=== PATIENT | female | born 1930 | race Caucasian/White ===

== ENCOUNTER → 2016-10-16 | Outpatient (CLI) | payer OTHER, BC ==
[~2016-10-16] MED LIST: ALEVE220 MG PO; ASPIRIN325 PO; ASPIRIN81 M2 PO; CLOPIDOGREL75 MG PO; FOSAMAX 70 MG T70 MG PO; HYDROCHLOROTHIA25 M2 PO; K-DUR10 MEQ PO; LIPITOR 10 MG10 M1 PO; LISINOPRIL10 MG PO; MULTI VITAMIN1 EACH PO; SYNTHROID50 MCG PO; TRAMADOL 50 MG50 MG PO
== END ==
LOC: RAD 01:27
DX: Z12.31 Encounter for screening mammogram for malignant neoplasm of breast (principal)

== ENCOUNTER 2017-05-21 13:10 | Inpatient (IN) | payer OTHER ==
[~2017-05-21] VITALS: Ht 157.5 cm; Wt 48.1 kg
--- NOTE | ~2017-05-21 | EKG ---
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
--- NOTE | ~2017-05-21 | O ---
[facility] [place] [place] [address] OPERATIVE REPORT Name: CANDE FERNÁNDEZ Room #: 457-P ADM IN M.R.#: [id number] Admission: 05/21/17 Attend Phys: Mason Virk DO Discharge: Date of : [birth year] Report #: [id number] THIS REPORT FOR: //name// CC: Bro Virk DATE OF SERVICE: 05/21/2017 PREOPERATIVE DIAGNOSIS: Right wrist comminuted distal radius and ulna fracture. POSTOPERATIVE DIAGNOSIS: Right wrist comminuted distal radius and ulna fracture. OPERATIVE PROCEDURE: Right wrist reduction and application of external fixator. SURGEON: Jordan Seaman MD COLLEGE PRESIDENT: SHANITA Gardner ANESTHESIA: General. INDICATIONS: See hospital H and P. DESCRIPTION OF PROCEDURE: After adequate general anesthesia had been obtained, the patient's right lower extremity was prepped and draped in the usual meticulous sterile fashion. I first did a closed reduction to ensure we could get over to closed reduction and indeed her fracture reduced near anatomically with distally based traction and ulnar deviation. We then prepped and draped the right upper extremity in the usual sterile fashion. The limb was exsanguinated with gravity and tourniquet inflated to 250 torr. We made a medial linear incision along the radial aspect of the radius and 2 small stab incisions along the radial aspect of the index metacarpal. Pins from the [employer] fixator device were then placed through the drill guide. The depth was checked on the C-arm and found to be in good position. We then applied the Monotube into position, tightened the proximal portion. We then reduced the fracture and tightened the distal portion. We checked the fracture in 2 planes on the C-arm, noted the tibia in good position. We then torqued the screws to ensure that they were completely tightened. We then irrigated the wounds copiously. 4-0 nylon was used to close the skin. Sterile compressive dressing applied. Tourniquet deflated. By: 1154 1215 Jordan Seaman MD /nt
--- NOTE | ~2017-05-21 | HC ---
[facility] [place] [address] CONSULTATION Name: CANDE FERNÁNDEZ Room #: 457-P ADM IN M.R.#: [id number] Admission: 05/21/17 Attend Phys: Mason Virk DO Discharge: Date of : [birth year] Report #: [id number] THIS REPORT FOR: //name// CC: Bro Virk CHIEF COMPLAINT: Right wrist pain. BRIEF HISTORY: The patient is an 86-year-old lady who was looking up ____ and lost her balance and fell. She apparently had a syncopal episode associated with this fall as well. EMS relates that when they went to the scene, she attempted to stand up and then had the syncopal episode, which lasted about 30 seconds. She had an x-ray done of her right wrist, which demonstrated a displaced wrist fracture. This was provisionally reduced and splinted, and she was admitted for definitive treatment. By history, she did have a small abrasion over the ulnar aspect of her wrist, but it was superficial. She denies numbness or tingling. PAST MEDICAL HISTORY: Significant for coronary artery disease, history of stent placement and hypertension. MEDICATIONS: Include Zestril, vitamin D, Ultram, Lipitor, Synthroid and vitamin B12. ALLERGIES: None known other than SHELLFISH. PHYSICAL EXAMINATION: MUSCULOSKELETAL: Examination of her right wrist demonstrates she does have a splint in place. It was a closed injury as mentioned. Sensation is intact in her fingers. She has brisk capillary refill but does have moderate swelling in her fingers. During the course of her examination, she did relate that she is complaining of some right-sided hip pain as well. We did a stat portable x-ray of her right hip, which demonstrates new irregularity of her inferior pubic ramus on the right, difficult to ascertain whether this is acute or chronic. IMPRESSION: Right wrist distal radius and ulnar fracture with displacement and right-sided hip pain with possible pubic ramus fracture. PLAN: Due to the fact that this fracture is comminuted and with her bone quality and the fact that it is so distal, I am leaning towards doing an external fixator to fixate this fracture. I did counselor supervisor her on the surgery as well as the benefits, risks and outcomes. We will be prepared to do a percutaneous pinning and/or plating if necessary. [address] [address] CONSULTATION Name: CANDE FERNÁNDEZ Room #: 457-P [facility] IN M.R.#: [id number] Admission: 05/21/17 Attend Phys: Mason Virk DO Discharge: Date of : [birth year] Report #: [id number] For her hip, we will treat this symptomatically even if there is an acute fracture of the pubic ramus, so she can be weightbearing as tolerated. By: 1151 1712 Jordan Seaman MD /kelly
--- NOTE | ~2017-05-21 | 2DMMODE ---
[facility] [address] [place] [address] 2 D/M-MODE ECHOCARDIOGRAM Name: JOLENECANDE NAGA Room #: 457-P ADM IN M.R.#: [id number] Admission: 05/21/17 Attend Phys: Mason Virk, Discharge: Date of : [birth year] Date of Service: 05/22/17 1454 Report #: [id number] THIS REPORT FOR: //name// APPROVED REPORT Study performed: 05/22/2017 13:34:43 EXAM: Comprehensive 2D, Doppler, and color-flow Echocardiogram Patient Location: Bedside Room #: [facility] Status: routine BSA: 1.46 HR: 68 bpm BP: 154/92 mmHg Rhythm: Sinus/Irregular Other Information Study Quality: Adequate Indications Syncope 2D Dimensions RVDd: 30.86 mm LVEF(%): 71.40 (>50%) IVSd: 10.00 (7-11mm) LVOT Diam: 20.45 (18-24mm) LVDd: 41.43 mm PWd: 8.25 (7-11mm) Ascending Ao: 32.73 (22-36mm) LVDs: 24.74 (25-40mm) Aortic Root: 35.12 mm Waddell's LVEF: 71.40 % Volumes Left Atrial Volume (Systole) Single Plane 4CH: 42.26 mL Single Plane 2CH: 31.75 mL LA ESV Index: 29.00 mL/m2 Aortic Valve AoV Peak Adria.: 1.14 m/s AO Peak Gr.: 5.24 mmHg LVOT Max P.02 mmHg LVOT Max V: 0.71 m/s PETRONA Vmax: 2.04 cm2 Mitral Valve E/A Ratio: 0.8 MV Decel. Time: 261.07 ms [facility] [place] [address] 2 D/M-MODE ECHOCARDIOGRAM Name: CANDE FERNÁNDEZ Room #: 457-P [facility] IN M.R.#: [id number] Admission: 05/21/17 Attend Phys: Mason Virk, Discharge: Date of : [birth year] Date of Service: 05/22/17 1454 Report #: [id number] MV E Max Adria.: 0.60 m/s MV A Adria.: 0.72 m/s MV PHT: 75.71 ms IVRT: 92.27 ms Pulmonary Valve PV Peak Adria.: 1.02 m/s PV Peak Gr.: 4.15 mmHg Pulmonary Vein P Vein S: 0.55 m/s P Vein A: 0.33 m/s P Vein D: 0.32 m/s P Vein A Dur.: 92.3 msec P Vein S/D Ratio: 1.72 Tricuspid Valve TR Peak Adria.: 2.55 m/s RAP Estimate: 5.00 mmHg TR Peak Gr.: 26.01 mmHg PA Pressure: 31.00 mmHg Left Ventricle The left ventricle is normal size. There is normal LV segmental wall motion. There is normal left ventricular wall thickness. Left ventricular systolic function is normal. LVEF is 55%. Mild diastolic dysfunction is present (impaired relaxation pattern). Right Ventricle The right ventricle is normal size. The right ventricular systolic function is normal. Atria The left atrium size is normal. The right atrium size is normal. Aortic Valve Aortic valve is mildly calcified. No aortic regurgitation is present. There is no aortic valvular stenosis. Mitral Valve Mitral valve leaflets are mildly thickened. Trace mitral regurgitation. Tricuspid Valve The tricuspid valve is normal in structure. There is mild tricuspid regurgitation. The right atrial pressure is estimated at 5 mmHg. There is borderline mild pulmonary hypertension with an estimated PAP of 30mmHg. [address] [address] 2 D/M-MODE ECHOCARDIOGRAM Name: CANDE FERNÁNDEZ Room #: 457-P [facility] IN ..#: [id number] Admission: 05/21/17 Attend Phys: Mason Virk, Discharge: Date of : [birth year] Date of Service: 05/22/17 1454 Report #: [id number] Pulmonic Valve The pulmonary valve is normal in structure. Trace pulmonic regurgitation. Great Vessels The aortic root is normal in size. The ascending aorta is normal in size. IVC is normal in size and collapses >50% with inspiration. Pericardium There is no pericardial effusion. <Conclusion> Normal global systolic function LVEF is 55%. Normal LV segmental wall motion. Mild diastolic dysfunction is present (impaired relaxation pattern). Aortic valve is mildly calcified. No stenosis or insufficiency Mitral valve leaflets are mildly thickened. Trace mitral regurgitation. Pulmonary artery pressure of 30mmHg. There is no pericardial effusion. <ELECTRONICALLY SIGNED> By: Scott Zaragoza MD, FACC 05/22/17 1454 1454 1454 Scott Zaragoza MD, FACC /INF
--- NOTE | ~2017-05-21 | HC ---
[facility] [place] [address] CONSULTATION Name: CANDE FERNÁNDEZ Room #: 457-P ADM IN M.R.#: [id number] Admission: 05/21/17 Attend Phys: Mason Virk DO Discharge: Date of : [birth year] Report #: [id number] THIS REPORT FOR: //name// CC: Bro Virk DATE OF SERVICE: 05/23/2017 HISTORY OF PRESENT ILLNESS: This is an 86-year-old white female who was looking at the eclipse, lost her balance and fell backwards. EMS came on to see her. She had hurt her right wrist. They attempt to stand her and she had a syncopal episode. She has been admitted for further evaluation. CT of the head was negative. Right wrist showed displaced fracture of radius and ulna and she underwent reduction with external fixator placement. She also has complaints of her right hip and pelvic pain. She is undergoing a CT of the pelvis with results pending. We are seeing her in rehabilitation medicine consultation. PAST MEDICAL HISTORY: Includes coronary artery disease with cardiac stent placement. MEDICATIONS: Please see the full medication listing. HABITS: No history of tobacco or alcohol abuse. SOCIAL HISTORY: House with spouse, ramp in, premorbid cane ambulator on occasion. They do have a stair glide to the basement. Involved family members. REVIEW OF SYSTEMS: Did not offer any current complaints of chest pain, shortness of breath or abdominal discomfort. She has the right-sided pelvic pain as noted above. Some right discomfort of the wrist as expected. PHYSICAL EXAMINATION: GENERAL: An 86-year-old small slender white female in no obvious distress. She is alert and appears quite sharp. HEENT: Facies are symmetric. EXTREMITIES: She has functional range of motion of the left upper extremity with some chronic degenerative arthritic changes. Right upper extremity reveals the right external fixator in place over the wrist. She can move the proximal arm with strength grade 4 to 4+/5. She is able to move her thumb and wiggle her fingers slightly. There is no distal edema noted. Lower extremities: She has some discomfort with moving that right lower extremity at the hip and pelvis. She can dorsiflex both ankles. No focal calf swelling. No obvious focal weakness of the left lower extremity. It was more difficult to test the right lower extremity because of some of the discomfort as noted above. ASSESSMENT: An 86-year-old white female with the following problem list: [address] [address] CONSULTATION Name: CANDE FERNÁNDEZ Room #: 457-P [facility] IN .R.#: [id number] Admission: 05/21/17 Attend Phys: Mason Virk DO Discharge: Date of : [birth year] Report #: [id number] 1. Right radial and ulnar fracture status post reduction with external fixator, nonweightbearing. She is to be up with a platform walker. 2. 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 3. Hip pain with x-ray unequivocal. CT scan pending. PLAN: The patient has been up mod assist sit to stand, took 4 steps mod assist, handheld assistance. Platform walker to be obtained. She is nonweightbearing, right upper extremity. I do not see that she would meet criteria for an acute 5-North inpatient rehabilitation stay at this time. She is hoping to return directly home, but may more practically warrant skilled facility stay unless family can further support during the home setting. We will need to see in par what her CT of the pelvic shows. We will be glad to follow along with you for now. By: 1247 0241 Tomas Azul MD /
[2017-05-21 13:12] VITALS: BP 154/67
[2017-05-21 15:12] LABS: ABSOLUTE NEUTROPHILS 7.3 thou/uL (1.4-8.2); BASOPHILS 0.9 % (0.0-2.0); EOSINOPHILS 2.1 % (0.0-3.0); HEMATOCRIT 37.1 % (37.0-47.0); HEMOGLOBIN 12.1 gm/dL (12.0-15.0); LYMPHOCYTES 12.6 % (24.0-44.0); MCH 31.5 pg (26.0-34.0); MCHC 32.8 g/dL (28.0-37.0); MCV 96.2 fL (80.0-100.0); MONOCYTES 7.3 % (1.0-8.0); PLATELET COUNT 141 thou/uL (150-400); POLYS 77.1 % (36.0-66.0); RBC 3.85 mil/uL (4.20-5.00); RDW 14.2 % (10.5-14.5); WBC 9.5 thou/uL (4.0-11.0)
[2017-05-21 15:20] LABS: MANUAL DIFF NO
[2017-05-21 15:26] LABS: ANION GAP 8 mmol/L (7-16); BUN 41 mg/dL (7-18); CALCIUM 10.3 mg/dL (8.5-10.1); CHLORIDE 102 mmol/L (98-107); CO2 30 mmol/L (21-32); CREATININE 1.7 mg/dL (0.6-1.0); GLUCOSE 97 mg/dL (74-106); SODIUM 140 mmol/L (136-145)
[2017-05-21 15:30] LABS: APTT 22.9 Seconds (24.5-32.8); PROTIME 9.8 Seconds (9.3-11.4)
[2017-05-21 15:32] LABS: TROPONIN-I < 0.04 ng/mL (<0.04-0.07)
[2017-05-21 16:55] VITALS: BP 178/82
[2017-05-21 17:21] VITALS: BP 164/80
[2017-05-21 18:12] VITALS: BP 145/82
[2017-05-21] MEDS ORDERED: LISINOPRIL20 MG PO (18:15)
[2017-05-21] MEDS ORDERED: CALCIUM 500 +1 EAC5 PO (18:16)
[2017-05-21] MEDS ORDERED: TRAMADOL 50 MG50 MG PO ×2 (18:16→18:18)
[2017-05-21] MEDS ORDERED: LEVOTHYROXINE0.05 MG PO (18:18)
[2017-05-21] MEDS ORDERED: LIPITOR 20 MG T20 M1 PO (18:18)
[2017-05-21] MEDS ORDERED: B12INJ IM (18:19)
[2017-05-22] VITALS (16 sets, daily range): BP systolic 131–184; BP diastolic 75–99
[2017-05-22 05:42] LABS: BASOPHILS 1.1 % (0.0-2.0); EOSINOPHILS 0.8 % (0.0-3.0); HEMATOCRIT 33.3 % (37.0-47.0); HEMOGLOBIN 11.1 gm/dL (12.0-15.0); LYMPHOCYTES 15.8 % (24.0-44.0); MCH 32.2 pg (26.0-34.0); MCHC 33.3 g/dL (28.0-37.0); MCV 96.7 fL (80.0-100.0); MONOCYTES 11.6 % (1.0-8.0); PLATELET COUNT 132 thou/uL (150-400); POLYS 70.7 % (36.0-66.0); RBC 3.45 mil/uL (4.20-5.00); RDW 14.3 % (10.5-14.5); WBC 7.1 thou/uL (4.0-11.0)
[2017-05-22 05:47] LABS: MANUAL DIFF NO
[2017-05-22 05:56] LABS: CALCIUM 9.4 mg/dL (8.5-10.1); CREATININE 1.4 mg/dL (0.6-1.0); POTASSIUM 4.3 mmol/L (3.5-5.1)
[2017-05-23 04:35] VITALS: BP 131/69
[2017-05-23 08:05] VITALS: BP 143/73
[2017-05-23 14:04] VITALS: BP 145/82
[2017-05-23 17:14] VITALS: BP 135/85
[2017-05-23 19:37] VITALS: BP 146/66
[2017-05-24 04:04] VITALS: BP 149/76
[2017-05-24 08:00] VITALS: BP 160/77
[2017-05-24 12:40] VITALS: BP 134/61
[2017-05-24 17:49] VITALS: BP 163/81
[2017-05-24 17:51] VITALS: BP 133/67
[2017-05-24 20:37] VITALS: BP 136/78
[2017-05-25 03:38] VITALS: BP 153/66
[2017-05-25 07:30] VITALS: BP 154/70
[2017-05-25] MEDS ORDERED: TRAMADOL 50 MG50 MG PO (08:28)
[2017-05-25 10:33] VITALS: BP 154/70
[2017-05-25 11:19] VITALS: BP 149/68
[2017-05-25 11:56] VITALS: BP 154/70
== END 2017-05-25 13:52 | disposition home health service (06) | DRG 513 ==
LOC: ER 13:10 → 4W 16:29 → EROBS 16:29 → 4W 16:29 → EDBD 16:29 → 4W 17:22
PROVIDERS: Family Medicine; Nurse Practitioner
PROC: 0PS Upper Bones, Reposition (ICD-10-PCS; principal; 2017-05-21)
DX: S52.601A Unspecified fracture of lower end of right ulna, initial encounter for closed fracture (principal); N17.0 Acute kidney failure with tubular necrosis; S32.9XXA Fracture of unspecified parts of lumbosacral spine and pelvis, initial encounter for closed fracture; I25.10 Atherosclerotic heart disease of native coronary artery without angina pectoris; I10 Essential (primary) hypertension; S52.501A Unspecified fracture of the lower end of right radius, initial encounter for closed fracture; S61.511A Laceration without foreign body of right wrist, initial encounter; Z79.82 Long term (current) use of aspirin; Z95.5 Presence of coronary angioplasty implant and graft; Z91.041 Radiographic dye allergy status; Z91.013 Allergy to seafood; Z79.899 Other long term (current) drug therapy; W18.39XA Other fall on same level, initial encounter; Y93.89 Activity, other specified; Y92.89 Other specified places as the place of occurrence of the external cause; Y99.8 Other external cause status
CPT/HCPCS: 10045; 50010; 50101; 50386; 50455; 56527; 57091; 62110; 62900; 70005